=== PATIENT | female | born 1985 | race Hispanic/Latino ===

== ENCOUNTER 2017-02-14 09:30 | Emergency (ER) | payer SELFPAY | END 2017-02-14 10:10 | disposition left against medical advice (07) | LOC: ERS 09:30 | DX: Z53.21 Procedure and treatment not carried out due to patient leaving prior to being seen by health care provider (principal) ==

== ENCOUNTER 2017-12-02 13:33 | Emergency (ER) | payer SELFPAY | END 2017-12-02 15:18 | disposition left against medical advice (07) | LOC: ERS 13:33 | DX: Z53.21 Procedure and treatment not carried out due to patient leaving prior to being seen by health care provider (principal) ==

== ENCOUNTER 2017-12-02 17:13 | Emergency (ER) | payer SELFPAY | END 2017-12-02 18:31 | disposition home or self-care (01) | LOC: ERS 17:13 | DX: G56.02 Carpal tunnel syndrome, left upper limb (principal); F32.9 Major depressive disorder, single episode, unspecified | CPT/HCPCS: 99283 ==

== ENCOUNTER 2017-12-16 23:02 | Emergency (ER) | payer SELFPAY ==
[2017-12-17] MEDS ORDERED: Cyclobenzaprine 10 MG TAB ONE (00:41)
== END 2017-12-17 01:01 | disposition home or self-care (01) ==
LOC: ERS 23:02
DX: S76.911A Strain of unspecified muscles, fascia and tendons at thigh level, right thigh, initial encounter (principal); S39.011A Strain of muscle, fascia and tendon of abdomen, initial encounter; X58.XXXA Exposure to other specified factors, initial encounter
CPT/HCPCS: 99283

== ENCOUNTER 2018-03-03 15:45 | Emergency (ER) | payer SELFPAY ==
[2018-03-03] MEDS ORDERED: Ketorolac Tromethamine 30 MG/ML VIAL ONE (16:48)
[2018-03-03] MEDS ORDERED: Adacel (T-DAP) 0.5 ML SYRINGE ONE (16:53)
[2018-03-03] MEDS ORDERED: Bacitracin Zinc 1 Packet ONE (16:53)
== END 2018-03-03 17:15 | disposition home or self-care (01) ==
LOC: ERS 15:45
DX: L03.012 Cellulitis of left finger (principal); F32.9 Major depressive disorder, single episode, unspecified
CPT/HCPCS: 90471; 90715; 96372; J1885

== ENCOUNTER 2018-08-18 22:56 | Emergency (ER) | payer SELFPAY ==
[2018-08-18] MEDS ORDERED: Ketorolac Tromethamine 30 MG/ML VIAL ONE (23:14)
--- NOTE | 2018-08-18 23:26 | RAD ---
4 views right knee. HISTORY: Right knee pain after fall AP, lateral and both oblique views right knee obtained. 4 views right knee demonstrate no evidence of right knee fractures, subluxations or bony lesions. IMPRESSION: Unremarkable 4 views right knee.
== END 2018-08-18 23:49 | disposition home or self-care (01) ==
LOC: ERS 22:56
DX: M25.561 Pain in right knee (principal); F17.210 Nicotine dependence, cigarettes, uncomplicated; W19.XXXA Unspecified fall, initial encounter
CPT/HCPCS: 96372; J1885

== ENCOUNTER 2018-10-23 18:13 | Emergency (ER) | payer SELFPAY | END 2018-10-23 19:30 | disposition home or self-care (01) | LOC: ERS 18:13 | DX: M25.561 Pain in right knee (principal); F17.210 Nicotine dependence, cigarettes, uncomplicated | CPT/HCPCS: 99281 ==

== ENCOUNTER 2018-11-26 16:49 | Emergency (ER) | payer SELFPAY ==
--- NOTE | 2018-11-26 18:01 | CT ---
CT BRAIN NONCONTRAST: DATE: 11/26/2018 HISTORY: 33-year-old female with left facial and left upper extremity hypesthesia (numbness) FINDINGS: There is no evidence of acute intra-axial or extra-axial hemorrhage. There is no midline shift or any other mass effect. There is no extra-axial fluid collection. There is no evidence of obstructive hydrocephalus. Calvarium is intact. IMPRESSION: No acute intracranial findings.
[2018-11-26 18:10] LABS: #Basophils 0.1 thou/uL (0.0-0.2); #Eosinphils 0.4 thou/uL (0.0-0.7); #Lymphocytes 4.1 thou/uL (1.20-3.40); #Monocytes 0.9 thou/uL (0.11-0.59); #Neutrophils 10.3 thou/uL (1.40-6.50); %Basophils 0.5 % (0.0-1.0); %Eosinophils 2.4 % (0.0-10.0); %Lymphocytes 26.2 % (21.0-51.0); %Monocytes 5.4 % (0.0-10.0); %Neutrophils 65.5 % (42.0-75.0); Hemoglobin 13.4 g/dL (12.0-16.0); Mean Corpuscular HGB CONC 34.9 g/dL (32.0-36.0); Mean Corpuscular Hemoglobin 33.3 pg (27.0-31.0); Mean Corpuscular Volume 95.6 fL (78.0-98.0); Mean Platelet Volume 7.2 fL (7.4-10.4); Platelet Count 307 thou/uL (130-400); RBC Distribution Width 11.6 % (11.5-14.5); Red Blood Cell (RBC) Count 4.01 mill/uL (4.20-5.40); White Blood Cell (WBC) Count 15.7 thou/uL (4.8-10.8)
[2018-11-26 18:23] LABS: BHCG - Serum Negative (NEGATIVE); Pregs Control Background? CLEAR/WHITE (CLR/WHITE); Pregs Control Bar Appear? YES (CONTROL BAR)
[2018-11-26 18:29] LABS: ALT (SGPT) 26 U/L (8-55); AST (SGOT) 21 U/L (5-34); Albumin 4.1 g/dL (3.5-5.0); Alkaline Phosphatase 88 U/L (40-150); Anion Gap 13 mmol/L (10-20); BUN (Urea Nitrogen) 11 mg/dL (7.0-18.7); Bilirubin, Total 0.4 mg/dL (0.2-1.2); Calc. Creatinine Clearance 0 mL/min (70-130); Calcium 9.4 mg/dL (7.8-10.44); Carbon Dioxide 23 mmol/L (22-29); Chloride 104 mmol/L (98-107); Estimated GFR-MDRD Greater than 90; Globulin 2.9 g/dL (2.4-3.5); Glucose 104 mg/dL (70-105); Potassium 3.7 mmol/L (3.5-5.1); Sodium 136 mmol/L (136-145)
[2018-11-26] MEDS ORDERED: Metoclopramide HCl 10 MG/2 ML VIAL ONE (18:45)
[2018-11-26] MEDS ORDERED: Acetaminophen 500 MG TAB ONE (18:45)
[2018-11-26] MEDS ORDERED: diphenhydrAMINE 50 MG/ML VIAL ONE (18:45)
== END 2018-11-26 20:21 | disposition home or self-care (01) ==
LOC: ERS 16:49
DX: R20.2 Paresthesia of skin (principal); R51 Headache; F17.200 Nicotine dependence, unspecified, uncomplicated
CPT/HCPCS: 36415; 70450; 80053; 84703; 85025; 96361; 96365; 96375; J1200; J2765

== ENCOUNTER 2019-03-03 09:35 | Emergency (ER) | payer SELFPAY | END 2019-03-03 16:34 | disposition home or self-care (01) | LOC: ERS 09:35 | DX: J02.8 Acute pharyngitis due to other specified organisms (principal) | CPT/HCPCS: 87081; 87430; 99283 ==

== ENCOUNTER 2020-08-18 20:11 | Emergency (ER) | payer SELFPAY | END 2020-08-18 21:06 | disposition home or self-care (01) | LOC: ERS 20:11 | DX: B37.2 Candidiasis of skin and nail (principal) | CPT/HCPCS: 99282 ==

== ENCOUNTER 2021-05-01 20:48 | Emergency (ER) | payer SELFPAY ==
[2021-05-01] MEDS ORDERED: Boostrix 0.5 ML (Tdap) VIAL ONE (22:28)
[2021-05-01] MEDS ORDERED: Bacitracin 1 PK ONE (22:38)
[2021-05-01] MEDS ORDERED: Ibuprofen 200 MG TAB ONE (22:40)
== END 2021-05-01 22:46 | disposition home or self-care (01) ==
LOC: ERS 20:48
DX: S01.01XA Laceration without foreign body of scalp, initial encounter (principal); W05.1XXA Fall from non-moving nonmotorized scooter, initial encounter; Z23 Encounter for immunization
CPT/HCPCS: 12001; 90471; 90715

== ENCOUNTER 2021-05-06 09:57 | Emergency (ER) | payer SELFPAY | END 2021-05-06 10:18 | disposition home or self-care (01) | LOC: ERS 09:57 | DX: S01.01XD Laceration without foreign body of scalp, subsequent encounter (principal) ==

== ENCOUNTER 2022-05-30 17:44 | Emergency (ER) | payer SELFPAY ==
[2022-05-30 18:43] LABS: #Basophils 0.1 thou/uL (0.0-0.2); #Eosinphils 0.4 thou/uL (0.0-0.7); #Lymphocytes 3.9 thou/uL (1.20-3.40); #Monocytes 0.7 thou/uL (0.11-0.59); #Neutrophils 7.3 thou/uL (1.40-6.50); %Basophils 0.8 % (0.0-1.0); %Eosinophils 3.4 % (0.0-10.0); %Lymphocytes 31.5 % (21.0-51.0); %Monocytes 5.8 % (0.0-10.0); %Neutrophils 58.6 % (42.0-75.0); Hemoglobin 12.6 g/dL (12.0-16.0); Mean Corpuscular HGB CONC 34.5 g/dL (32.0-36.0); Mean Corpuscular Hemoglobin 33.1 pg (27.0-31.0); Mean Corpuscular Volume 95.8 fl (78.0-98.0); Mean Platelet Volume 7.9 fL (7.4-10.4); Platelet Count 364 10x3/uL (130-400); White Blood Cell (WBC) Count 12.5 10x3/uL (4.8-10.8)
[2022-05-30 19:07] LABS: ALT (SGPT) 17 U/L (8-55); AST (SGOT) 15 U/L (5-34); Albumin 4.2 g/dL (3.5-5.0); Alkaline Phosphatase 96 U/L (40-110); Anion Gap 13 mmol/L (10-20); BUN (Urea Nitrogen) 12 mg/dL (7.0-18.7); Bilirubin, Total 0.2 mg/dL (0.2-1.2); CK (CPK) 76 U/L (29-168); Calc. Creatinine Clearance 0 mL/min (70-130); Carbon Dioxide 23 mmol/L (22-29); Chloride 105 mmol/L (98-107); Estimated GFR 116; Globulin 3.1 g/dL (2.4-3.5); Glucose 93 mg/dL (70-105); Lipase 22 U/L (8-78); Potassium 4.2 mmol/L (3.5-5.1); Protein, Total 7.3 g/dL (6.0-8.3); Sodium 137 mmol/L (136-145)
[2022-05-30] MEDS ORDERED: Acetaminophen 500 MG TAB ONE (19:19)
== END 2022-05-30 19:29 | disposition home or self-care (01) ==
LOC: ERS 17:44
DX: F41.9 Anxiety disorder, unspecified (principal)
CPT/HCPCS: 36415; 71045; 80053; 82550; 83690; 84484; 85025; 93005

== ENCOUNTER 2023-03-14 13:04 | Emergency (ER) | payer BC, SELFPAY ==
[2023-03-14] MEDS ORDERED: Ketorolac Tromethamine 30 MG/ML VIAL ONE (14:21)
== END 2023-03-14 14:38 | disposition home or self-care (01) ==
LOC: ERS 13:04
DX: M46.1 Sacroiliitis, not elsewhere classified (principal)
CPT/HCPCS: 96372; 99283; J1885

== ENCOUNTER 2024-04-16 07:33 | Emergency (ER) | payer BC, SELFPAY ==
[2024-04-16 08:12] LABS: Hemoglobin 12.3 g/dL (12.0-16.0)
[2024-04-16 08:29] LABS: ALT (SGPT) 14 U/L (8-55); AST (SGOT) 15 U/L (5-34); Albumin 3.5 g/dL (3.5-5.0); Alkaline Phosphatase 81 U/L (40-110); Anion Gap 12 mmol/L (10-20); BUN (Urea Nitrogen) 10 mg/dL (7.0-18.7); Bilirubin, Total 0.2 mg/dL (0.2-1.2); Calc. Creatinine Clearance 0 mL/min (70-130); Calcium 8.6 mg/dL (7.8-10.44); Carbon Dioxide 21 mmol/L (22-29); Chloride 110 mmol/L (98-107); Estimated GFR 119; Globulin 3.3 g/dL (2.4-3.5); Glucose 99 mg/dL (70-105); Lipase 16 U/L (8-78); Potassium 4.1 mmol/L (3.5-5.1); Protein, Total 6.8 g/dL (6.0-8.3); Sodium 139 mmol/L (136-145)
[2024-04-16 08:34] LABS: Troponin I Less than 0.010 ng/mL (< 0.028)
[2024-04-16] MEDS ORDERED: Morphine 4 MG/ML VIAL ONE (09:02)
[2024-04-16] MEDS ORDERED: Ketorolac Tromethamine 30 MG (1 mL) VIAL ONE (09:02)
[2024-04-16] MEDS ORDERED: Ondansetron PF 4 MG/2 ML Vial ONE (09:03)
[2024-04-16 09:09] LABS: #Basophils 0.05 10x3/uL (0.0-0.2); %Basophils 0.5 % (0.0-1.0); %Lymphocytes 27.1 % (21.0-51.0); %Neutrophils 63.2 % (42.0-75.0); Hematocrit 35.6 % (36.0-47.0); Mean Corpuscular HGB CONC 34.6 g/dL (32.0-36.0); Mean Corpuscular Hemoglobin 31.6 pg (27.0-31.0); Mean Corpuscular Volume 91.5 fL (78.0-98.0); Mean Platelet Volume 9.3 fL (7.4-10.4); Platelet Count 385 10x3/uL (130-400); Red Blood Cell (RBC) Count 3.89 mill/uL (4.20-5.40)
== END 2024-04-16 10:38 | disposition home or self-care (01) ==
LOC: ERS 07:33
DX: R07.89 Other chest pain (principal); M54.12 Radiculopathy, cervical region; Z55.6 Problems related to health literacy; Z75.3 Unavailability and inaccessibility of health-care facilities
CPT/HCPCS: 71045; 80053; 83690; 84484; 85025; 93005; 96374; 96375; J1885; J2270; J2405